=== PATIENT | female | born 1960 | race Caucasian/White ===

== ENCOUNTER 2017-01-21 08:28 | Emergency (ER) | payer MEDICARE, OTHER, MEDICAID ==
[~2017-01-21] VITALS: Ht 162.6 cm; Wt 45.5 kg
[2017-01-21] MEDS ORDERED: LOPERAMIDE HCL 2 MG CAPSULE PO ONE (09:15)
[2017-01-21] MEDS ORDERED: CloNIDine HCL 0.2 MG TABLET PO ONE (09:15)
[2017-01-21 09:52] LABS: ANION GAP 13 mmol/L (8-16); CALCIUM, TOTAL 9.2 mg/dL (8.8-10.5); CARBON DIOXIDE 24 mmol/L (22-29); CHLORIDE 104 mmol/L (98-107); CREATININE 0.92 mg/dL (0.60-1.30); GLOMERULAR FILTR. RATE CALC > 60 mL/min (>60); POTASSIUM 3.4 mmol/L (3.5-5.1); SODIUM SERUM 141 mmol/L (136-145); UREA NITROGEN, BLOOD 9 mg/dL (7-18)
[2017-01-21 12:09] VITALS: BP 146/84
== END 2017-01-21 12:28 | disposition home or self-care (01) ==
LOC: EMS 08:30
DX: R19.7 Diarrhea, unspecified (principal); F11.23 Opioid dependence with withdrawal; T40.0X5A Adverse effect of opium, initial encounter; F17.210 Nicotine dependence, cigarettes, uncomplicated; Y92.89 Other specified places as the place of occurrence of the external cause
CPT/HCPCS: 99283